=== PATIENT | female | born 1960 | race Caucasian/White ===

== ENCOUNTER 2016-11-14 08:17 | Day surgery (SDC) | payer MEDICARE, MEDICAID ==
[~2016-11-14] VITALS: Ht 157.5 cm; Wt 69.8 kg
[~2016-11-14 08:17] MED LIST: ATIVAN 1 MG1 MG PO; CARAFATE1 GM PO; FLEXERIL10 MG PO; HYDROCODON-ACE1 EAC2 PO; HYDRODIURIL25 MG PO; IRON325 M1 PO; OMEPRAZOLE40 MG PO; ROPINIROLE HCL0.5 MG PO
== END 2016-11-14 11:13 | disposition disaster alternative care site (69) ==
LOC: GEND 08:17 → GSIP 08:17 → GEND 11:13
PROC: 0DB68ZX Excision of Stomach, Via Natural or Artificial Opening Endoscopic, Diagnostic (ICD-10-PCS; principal; 2016-11-14)
DX: K29.50 Unspecified chronic gastritis without bleeding (principal); K21.9 Gastro-esophageal reflux disease without esophagitis; D50.9 Iron deficiency anemia, unspecified; I10 Essential (primary) hypertension; Z87.19 Personal history of other diseases of the digestive system; Z88.0 Allergy status to penicillin; Z98.890 Other specified postprocedural states
CPT/HCPCS: J2001; J2405; J7030